=== PATIENT | female | born 1940 | race Caucasian/White ===

== ENCOUNTER → 2017-12-04 | Outpatient (CLI) | payer OTHER ==
[~2017-12-04] MED LIST: ASPI-650 PO; FISH OIL PO; MULT-516 PO
[2017-12-04 08:48] LABS: BASOPHILS # (AUTO) 0.04 x10^3/uL (0-0.1); BASOPHILS % (AUTO) 1 % (0-1); EOSINOPHILS # (AUTO) 0.45 x10^3/uL (0-0.4); EOSINOPHILS % (AUTO) 8 % (1-7); LYMPHOCYTES # (AUTO) 0.93 x10^3/uL (1-3.4); LYMPHOCYTES % (AUTO) 17 % (22-44); MD NO; MEAN CORPUSCULAR HEMOGLOBIN 32.9 pg (27.0-34.8); MEAN CORPUSCULAR HGB CONC 33.6 g/dL (32.4-35.8); MEAN PLATELET VOLUME 9.5 fL (7.4-10.4); MONOCYTES # (AUTO) 0.42 x10^3/uL (0.2-0.8); MONOCYTES % (AUTO) 8 % (2-9); NEUTROPHILS # (AUTO) 3.51 x10^3/uL (1.8-6.8); NEUTROPHILS % (AUTO) 66 % (42-75); PLATELET COUNT 211 x10^3/uL (130-400); RED BLOOD COUNT 4.32 x10^6/uL (3.82-5.3); RED CELL DISTRIBUTION WIDTH 13.4 % (9.6-15.2)
[2017-12-04 08:58] LABS: ALBUMIN 3.8 g/dL (3.4-5.0); ANION GAP 7 mmol/L (5-15); CALCIUM 9.4 mg/dL (8.5-10.1); CHLORIDE 113 mmol/L (98-107)
[2017-12-04 09:02] LABS: ALANINE AMINOTRANSFERASE 34 U/L (12-78); ALKALINE PHOSPHATASE 75 U/L (45-117); BILIRUBIN,TOTAL 0.9 mg/dL (0.2-1.0); CREATININE 1.22 mg/dL (0.55-1.02); TOTAL PROTEIN 7.8 g/dL (6.4-8.2)
== END | disposition home or self-care (01) ==
LOC: STAR 07:35
PROVIDERS: ATTEND Surgery
DX: Z01.818 Encounter for other preprocedural examination (principal)
CPT/HCPCS: 36415; 71046; 80053; 85025; 93005

== ENCOUNTER 2017-12-10 07:39 | Inpatient (IN) | payer MEDICARE, OTHER ==
[~2017-12-10] VITALS: Ht 157.5 cm; Wt 58.6 kg
[~2017-12-10 07:39] MED LIST changes: +INDOCYANINE GREEN 25 MG VIAL ONE
[2017-12-10] MEDS ORDERED: MIDAZOLAM 1 MG/ML, 2ML ONE (11:05)
[2017-12-10] MEDS ORDERED: FENTANYL PF 250 MCG/5ML ONE (11:06)
[2017-12-10] MEDS ORDERED: LACTATED RINGERS 1,000 ML IV SCH (11:06)
[2017-12-10] MEDS ORDERED: ACETAMINOPHEN 500 MG TABLET PO STA (11:07)
[2017-12-10] MEDS ORDERED: HYDROmorphone 1 MG/ML, 1ML IV PRN (13:00)
[2017-12-10] MEDS ORDERED: FENTANYL PF 100 MCG/2ML IV PRN (13:00)
[2017-12-10] MEDS ORDERED: HYDROcodone/APAP 7.5-325MG/15ML UDC PO PRN (13:00)
[2017-12-10] MEDS ORDERED: ACETAMINOPHEN 325 MG TABLET PO PRN (13:00)
[2017-12-10] MEDS ORDERED: ONDANSETRON 2MG/ML, 2ML IVPush PRN (13:00)
[2017-12-10] MEDS ORDERED: OXYcodone 5 MG/5 ML ORAL.SOL UDC PO PRN (13:00)
[2017-12-10] MEDS ORDERED: NEOSTIGMINE 1 MG/ML, 10ML ONE (13:10)
[2017-12-10] MEDS ORDERED: PROPOFOL 10 MG/ML, 20ML ONE (13:10)
[2017-12-10] MEDS ORDERED: DEXAMETHASONE 4 MG/ML, 1ML ONE (13:10)
[2017-12-10] MEDS ORDERED: ONDANSETRON 2MG/ML, 2ML ONE ×2 (13:10→15:02)
[2017-12-10] MEDS ORDERED: SUCCINYLCHOLINE 20 MG/ML, 10ML ONE (13:10)
[2017-12-10] MEDS ORDERED: ROCURONIUM 10 MG/ML,10ML ONE (13:10)
[2017-12-10] MEDS ORDERED: CEFAZOLIN 1,000 MG ONE (13:10)
[2017-12-10] MEDS ORDERED: GLYCOPYRROLATE 0.2MG/1ML, 5ML ONE (13:10)
[2017-12-10] MEDS ORDERED: CEFOTETAN PMX 1GM/50ML 50 ML ONE (13:10)
[2017-12-10] MEDS ORDERED: BUPIVACAINE/PF 0.25% ONE (13:12)
[2017-12-10] MEDS ORDERED: BUPIVACAINE/PF 0.5% INFIL ONE (13:22)
[2017-12-10] MEDS ORDERED: PROMETHAZINE 25 MG/ML, 1ML ONE (15:41)
[2017-12-10] MEDS ORDERED: PROMETHAZINE 25 MG/ML, 1ML IV PRN (16:00)
[2017-12-10 16:21] VITALS: BP 124/69
[2017-12-10] MEDS ORDERED: ONDANSETRON 2MG/ML, 2ML IV PRN (16:30)
[2017-12-10] MEDS ORDERED: OXYcodone IR 5MG TABLET PO PRN (16:30)
[2017-12-10] MEDS ORDERED: DIPHENHYDRAMINE 50 MG/ML, 1ML IVPush PRN (16:30)
[2017-12-10] MEDS ORDERED: SCOPOLAMINE PATCH, 1.5MG PATCH.TD72 TD PRN (16:30)
[2017-12-10] MEDS ORDERED: CALCIUM CARBONATE 500 MG TAB.CHEW PO PRN (16:30)
[2017-12-10] MEDS ORDERED: HYDROmorphone 1 MG/ML, 1ML IVPush PRN (16:30)
[2017-12-10] MEDS: ACETAMINOPHEN 500 MG TABLET PO SCH ×2 (16:43→22:19)
[2017-12-10 19:12] VITALS: BP 114/62
[2017-12-10] MEDS: IBUPROFEN 800 MG TABLET PO SCH (21:00)
[2017-12-10] MEDS ORDERED: IBUPROFEN 200 MG TABLET ONE (21:03)
[2017-12-10] MEDS ORDERED: IBUPROFEN 600 MG TABLET ONE (21:03)
[2017-12-11 00:14] VITALS: BP 107/60
[2017-12-11] MEDS: ACETAMINOPHEN 500 MG TABLET PO SCH ×2 (04:14→10:30)
[2017-12-11 05:28] LABS: BASOPHILS % (AUTO) 0 % (0-1); EOSINOPHILS # (AUTO) 0.01 x10^3/uL (0-0.4); EOSINOPHILS % (AUTO) 0 % (1-7); LYMPHOCYTES # (AUTO) 0.49 x10^3/uL (1-3.4); LYMPHOCYTES % (AUTO) 5 % (22-44); MD NO; MEAN CORPUSCULAR HEMOGLOBIN 32.9 pg (27.0-34.8); MEAN CORPUSCULAR HGB CONC 33.4 g/dL (32.4-35.8); MEAN CORPUSCULAR VOLUME 98.7 fL (80-100); MEAN PLATELET VOLUME 10.2 fL (7.4-10.4); MONOCYTES # (AUTO) 0.59 x10^3/uL (0.2-0.8); MONOCYTES % (AUTO) 6 % (2-9); NEUTROPHILS # (AUTO) 8.38 x10^3/uL (1.8-6.8); NEUTROPHILS % (AUTO) 89 % (42-75); PLATELET COUNT 143 x10^3/uL (130-400); RED BLOOD COUNT 3.92 x10^6/uL (3.82-5.3); RED CELL DISTRIBUTION WIDTH 13.1 % (9.6-15.2)
[2017-12-11 05:35] LABS: ALBUMIN 3.3 g/dL (3.4-5.0); ANION GAP 10 mmol/L (5-15); CALCIUM 8.7 mg/dL (8.5-10.1); CHLORIDE 104 mmol/L (98-107)
[2017-12-11 07:20] VITALS: BP 101/66
[2017-12-11] MEDS ORDERED: ENOXAPARIN 30 MG/0.3 ML SQ SCH (08:00)
[2017-12-11] MEDS: IBUPROFEN 800 MG TABLET PO SCH (09:12)
[2017-12-11 10:58] VITALS: BP 116/55
[2017-12-12] MEDS ORDERED: ENOXAPARIN 30 MG/0.3 ML SQ SCH (08:30)
== END 2017-12-11 11:51 | disposition home or self-care (01) | DRG 330 ==
LOC: ORIP 10:48 → 4NOR 16:19 → DCLOUNGE 12-11 11:42
PROVIDERS: ADMIT Surgery; ATTEND Surgery
PROC: 0UB04ZZ Excision of Right Ovary, Percutaneous Endoscopic Approach (ICD-10-PCS; 2017-12-10)
PROC: 8E0W4CZ Robotic Assisted Procedure of Trunk Region, Percutaneous Endoscopic Approach (ICD-10-PCS; 2017-12-10)
PROC: 0DQP4ZZ Repair Rectum, Percutaneous Endoscopic Approach (ICD-10-PCS; principal; 2017-12-10 13:00)
DX: K62.3 Rectal prolapse (principal); N17.9 Acute kidney failure, unspecified
CPT/HCPCS: 36415; 80048; 82040; 85025; 88307; J0690; J1100; J1650; J2250; J2405; J2550; J2704; J2710; J3010; J3490; J0330; J7120; S0074

== ENCOUNTER 2018-05-31 04:18 | Inpatient (IN) | payer MEDICARE, OTHER ==
[~2018-05-31] VITALS: Ht 157.5 cm; Wt 58.1 kg
[~2018-05-31 04:18] MED LIST changes: -INDOCYANINE GREEN 25 MG VIAL ONE
[2018-05-31] MEDS ORDERED: MECLIZINE CHEWABLE 25 MG TAB ONE ×2 (04:53→06:35)
[2018-05-31] MEDS ORDERED: ONDANSETRON 2MG/ML, 2ML ONE (04:53)
[2018-05-31] MEDS ORDERED: FAMOTIDINE 20 MG/2 ML ONE (04:53)
[2018-05-31 04:58] LABS: BASOPHILS % (AUTO) 0 % (0-1); EOSINOPHILS # (AUTO) 0.01 x10^3/uL (0-0.4); EOSINOPHILS % (AUTO) 0 % (1-7); LYMPHOCYTES # (AUTO) 0.48 x10^3/uL (1-3.4); LYMPHOCYTES % (AUTO) 6 % (22-44); MD NO; MEAN CORPUSCULAR HEMOGLOBIN 33.5 pg (27.0-34.8); MEAN CORPUSCULAR HGB CONC 34.1 g/dL (32.4-35.8); MEAN CORPUSCULAR VOLUME 98.3 fL (80-100); MEAN PLATELET VOLUME 9.8 fL (7.4-10.4); MONOCYTES # (AUTO) 0.38 x10^3/uL (0.2-0.8); MONOCYTES % (AUTO) 5 % (2-9); NEUTROPHILS # (AUTO) 6.94 x10^3/uL (1.8-6.8); NEUTROPHILS % (AUTO) 89 % (42-75); PLATELET COUNT 187 x10^3/uL (130-400); RED BLOOD COUNT 4.42 x10^6/uL (3.82-5.3); RED CELL DISTRIBUTION WIDTH 13.2 % (9.6-15.2)
[2018-05-31] MEDS ORDERED: SODIUM CHLORIDE 0.9% 1,000ML IVBOLUS ONE (05:00)
[2018-05-31] MEDS ORDERED: SODIUM CHLORIDE FLUSH 10ML SYR IVF ONE (05:00)
[2018-05-31] MEDS ORDERED: ONDANSETRON 2MG/ML, 2ML IVPush ONE (05:00)
[2018-05-31] MEDS ORDERED: MECLIZINE CHEWABLE 25 MG TAB PO ONE ×2 (05:00→07:00)
[2018-05-31] MEDS ORDERED: FAMOTIDINE 20 MG/2 ML IVP ONE (05:00)
[2018-05-31 05:11] LABS: ALBUMIN 3.9 g/dL (3.4-5.0); ANION GAP 11 mmol/L (5-15); CALCIUM 9.9 mg/dL (8.5-10.1); CHLORIDE 108 mmol/L (98-107)
[2018-05-31 05:12] LABS: CREATININE 1.19 mg/dL (0.55-1.02)
[2018-05-31 06:55] LABS: MICROSCOPIC INDICATED
[2018-05-31 07:14] LABS: CULTURE INDICATED? YES
[2018-05-31 08:45] VITALS: BP 121/63
[2018-05-31 09:39] VITALS: BP_SYST 122; BP_SYST 131; BP_DIAS 63; BP_DIAS 72
[2018-05-31 09:40] VITALS: BP 130/64
[2018-05-31 12:57] VITALS: BP 112/59
[2018-05-31] MEDS ORDERED: MECLIZINE CHEWABLE 25 MG TAB PO PRN (13:30)
[2018-05-31] MEDS ORDERED: morphine SULFATE 10 MG/ML, 1ML IVPush PRN (13:30)
[2018-05-31] MEDS ORDERED: ACETAMINOPHEN 325 MG TABLET PO PRN (13:30)
[2018-05-31] MEDS ORDERED: ENALAPRILAT 1.25 MG/ML, 2ML IVPush PRN (13:30)
[2018-05-31] MEDS ORDERED: ONDANSETRON 2MG/ML, 2ML IVPush PRN (13:30)
[2018-05-31 14:05] LABS: FREE T4 (FREE THYROXINE) 1.1 ng/dL (0.76-1.46); THYROID STIMULATING HORMONE 2.09 mIU/L (0.358-3.740)
[2018-05-31] MEDS: SODIUM CHLORIDE 0.9% 1,000 ML IV SCH (15:00)
[2018-05-31] MEDS: CEFTRIAXONE PMX 1GM/50ML 50 ML IV SCH (15:04)
[2018-05-31] MEDS ORDERED: GADOBUTROL 10 MMOL/10 ML PFS ONE (15:46)
[2018-05-31 19:38] VITALS: BP 112/62
[2018-06-01] MEDS: SODIUM CHLORIDE 0.9% 1,000 ML IV SCH ×3 (00:56→21:00)
[2018-06-01 02:26] VITALS: BP 109/56
[2018-06-01 04:41] LABS: ANION GAP 6 mmol/L (5-15); CALCIUM 8.6 mg/dL (8.5-10.1); CHLORIDE 115 mmol/L (98-107); CREATININE 1.08 mg/dL (0.55-1.02)
[2018-06-01 07:58] VITALS: BP 156/79
[2018-06-01 11:42] VITALS: BP 135/71
[2018-06-01 13:07] VITALS: BP 137/73
[2018-06-01] MEDS: CEFTRIAXONE PMX 1GM/50ML 50 ML IV SCH (14:21)
[2018-06-01 20:39] VITALS: BP 143/83
[2018-06-01] MEDS: ASPIRIN 325 MG TABLET PO SCH (21:12)
[2018-06-01 22:30] VITALS: BP 151/79
[2018-06-02 01:51] VITALS: BP 108/63
[2018-06-02 04:46] LABS: CHLORIDE 116 mmol/L (98-107)
[2018-06-02 04:51] LABS: ANION GAP 7 mmol/L (5-15); CALCIUM 8.6 mg/dL (8.5-10.1); CREATININE 1.05 mg/dL (0.55-1.02)
[2018-06-02] MEDS: SODIUM CHLORIDE 0.9% 1,000 ML IV SCH (07:00)
[2018-06-02 07:51] VITALS: BP 138/75
[2018-06-02] MEDS: ASPIRIN 325 MG TABLET PO SCH (09:12)
[2018-06-02] MEDS ORDERED: MECL-85 PO (10:20)
== END 2018-06-02 11:45 | disposition home health service (06) | DRG 683 ==
LOC: ED 07:12 → EDIP 07:35 → 3NW 08:36
PROVIDERS: ADMIT Hospitalist; ATTEND Internal Medicine
DX: N17.9 Acute kidney failure, unspecified (principal); N39.0 Urinary tract infection, site not specified; Z66 Do not resuscitate; Z90.5 Acquired absence of kidney; Z80.0 Family history of malignant neoplasm of digestive organs; Z82.49 Family history of ischemic heart disease and other diseases of the circulatory system; Z85.828 Personal history of other malignant neoplasm of skin; Z90.710 Acquired absence of both cervix and uterus; Z88.0 Allergy status to penicillin; Z88.8 Allergy status to other drugs, medicaments and biological substances
CPT/HCPCS: 36415; 70544; 70553; 71045; 80048; 81001; 82040; 83605; 84439; 84443; 85025; 87040; 87086; 93005; 96374; 96375; 99285; A9585; J0696; J2405; J7030; S0028

== ENCOUNTER → 2020-12-17 | Outpatient (CLI) | payer OTHER ==
[~2020-12-17] MED LIST changes: +MECL-85 PO; +REGADENOSON 0.4 MG/5 ML SYRINGE ONE
== END | disposition home or self-care (01) ==
LOC: CFH 06:42
PROVIDERS: ATTEND Internal Medicine Cardiovascular Disease
DX: I08.8 Other rheumatic multiple valve diseases (principal); I11.9 Hypertensive heart disease without heart failure; I27.20 Pulmonary hypertension, unspecified; I48.91 Unspecified atrial fibrillation
CPT/HCPCS: 78452; 93017; 93306; A9502; J2785